=== PATIENT | male | born 1955 | race Caucasian/White ===

== ENCOUNTER 2020-04-27 16:17 | Emergency (ER) | payer OTHER ==
[~2020-04-27] VITALS: Ht 162.6 cm; Wt 68.0 kg
[2020-04-27 16:19] VITALS: BP 98/55; Ht 162.6 cm; Wt 68.0 kg
[2020-04-27 18:53] LABS: BASOPHIL % 0.7 % (0.2-1.5); PLATELET COUNT 362 x10^3mcL (152-348)
[2020-04-27 19:07] LABS: RED CELL DISTRIBUTION WIDTH 17.9 % (12.1-16.2)
[2020-04-27 20:02] LABS: CALCIUM 8.5 mg/dL (8.5-10.1); CARBON DIOXIDE 32.1 mmol/L (21-32); CREATININE SERUM 3.6 mg/dL (0.7-1.3); POTASSIUM SERUM 4.2 mmol/L (3.5-5.1)
[2020-04-27 20:07] LABS: BILIRUBIN TOTAL 0.26 mg/dL (0.20-1.00)
[2020-04-27 20:09] LABS: ALBUMIN 2.2 g/dL (3.4-5.0)
== END 2020-04-27 20:41 | disposition home or self-care (01) ==
LOC: ED 16:17
PROVIDERS: Emergency Medicine
DX: F41.9 Anxiety disorder, unspecified (principal); D64.9 Anemia, unspecified; E11.22 Type 2 diabetes mellitus with diabetic chronic kidney disease; I12.0 Hypertensive chronic kidney disease with stage 5 chronic kidney disease or end stage renal disease; N18.6 End stage renal disease; Z99.2 Dependence on renal dialysis
CPT/HCPCS: 82962